=== PATIENT | female | born 1985 | race Caucasian/White ===

== ENCOUNTER 2018-06-05 17:43 | Inpatient (IN) | payer OTHER, MEDICAID ==
[2018-06-05] MEDS ORDERED: METHYLERGONOVINE 0.2 MG INJ IM (19:00)
[2018-06-05] MEDS ORDERED: CARBOPROST 250 MCG INJ IM (19:00)
[2018-06-05] MEDS ORDERED: IBUPROFEN 600 MG TAB PO (19:00)
[2018-06-05] MEDS ORDERED: MISOPROSTOL 200 MCG TAB PR (19:00)
[2018-06-05] MEDS ORDERED: LIDOCAINE 1% (MPF) 30 ML INJ INJ (19:00)
[2018-06-05] MEDS ORDERED: BUTORPHANOL 2 MG INJ IV (19:00)
[2018-06-05] MEDS ORDERED: OXYTOCIN 30 UNITS/LR 500 ML IV ×2 (19:00)
[2018-06-05 19:11] LABS: ADD MAN DIFF? NO
[2018-06-05 19:13] LABS: BASOPHILS % 0.2 % (0.0-2.0); EOSINOPHILS # 0.1 10^3/ul (0.0-0.5); EOSINOPHILS % 0.6 % (0.0-7.0); HEMATOCRIT 39.3 % (37.0-47.0); HEMOGLOBIN 13.4 g/dl (12.0-16.0); LYMPHOCYTES # 2.4 10^3/ul (0.8-2.9); MEAN CORPUSCULAR HEMOGLOBIN 30.7 pg (29.0-33.0); MEAN CORPUSCULAR HGB CONC 34.1 g/dl (32.0-37.0); MEAN CORPUSCULAR VOLUME 90.1 fl (82.0-101.0); MEAN PLATELET VOLUME 11.2 fl (7.4-10.4); MONOCYTE # 0.9 10^3/ul (0.3-0.9); MONOCYTES % 9.4 % (0.0-11.0); NEUTROPHIL # 5.7 10^3/ul (1.6-7.5); NEUTROPHILS % 63.4 % (39.0-77.0); PLATELET COUNT 256 10^3/UL (140-415); RED BLOOD COUNT 4.36 10^6/ul (4.20-5.40); RED CELL DISTRIBUTION WIDTH 12.9 % (11.5-14.5)
[2018-06-05 19:33] LABS: INR 0.83; PROTIME 11.5 Sec (11.9-14.9); PT RATIO 0.9
[2018-06-05 19:34] LABS: PARTIAL THROMBOPLASTIN TIME 27.6 Sec (23.0-35.0)
[2018-06-05 20:14] LABS: HIV 1&2 ANTIBODY NEGATIVE (NEGATIVE)
[2018-06-05] MEDS: LACTATED RINGER'S 1,000 ML IV ×2 (23:06→23:09)
[2018-06-05] MEDS ORDERED: NALOXONE (0.4 MG/ML) INJ IV (23:30)
[2018-06-05] MEDS ORDERED: DIPHENHYDRAMINE 50 MG INJ IV (23:30)
[2018-06-05] MEDS ORDERED: ONDANSETRON 4 MG INJ IV (23:30)
[2018-06-06] MEDS: LACTATED RINGER'S 1,000 ML IV (00:49)
[2018-06-06] MEDS: OXYTOCIN 30 UNITS/LR 500 ML IV ×2 (01:54→11:04)
[2018-06-06] MEDS: FENTAnyl 2MCG/ML-ROPIV 0.2% 100 ML BAG EPI (06:23)
[2018-06-06] MEDS ORDERED: DIPHENHYDRAMINE 25 MG CAP PO (09:00)
[2018-06-06] MEDS ORDERED: NA PHOSPHATE/BIPHOS 133 ML ENEMA PR (09:00)
[2018-06-06] MEDS ORDERED: HYDROCODONE/APAP (5/325) TAB PO ×2 (09:00)
[2018-06-06] MEDS ORDERED: ONDANSETRON 4 MG TAB PO (09:00)
[2018-06-06] MEDS ORDERED: SENNA/DOCUSATE NA (8.6MG/50MG) TAB PO (09:00)
[2018-06-06] MEDS ORDERED: OXYTOCIN 30 UNITS/LR 500 ML IV (09:00)
[2018-06-06] MEDS ORDERED: DIPHENHYDRAMINE 50 MG INJ IV (09:00)
[2018-06-06] MEDS ORDERED: MAGNESIUM HYDROXIDE 30ML CUP PO (09:00)
[2018-06-06] MEDS ORDERED: DIBUCAINE 1% 30 GM OINT TOP (09:00)
[2018-06-06] MEDS ORDERED: CARBOPROST 250 MCG INJ IM (09:00)
[2018-06-06] MEDS ORDERED: MISOPROSTOL 200 MCG TAB PR (09:00)
[2018-06-06] MEDS ORDERED: ONDANSETRON 4 MG INJ IV (09:00)
[2018-06-06] MEDS: WITCH HAZEL/GLYCERIN PAD PR (12:29)
[2018-06-06] MEDS: BENZOCAINE 20% 56 ML SPRAY TOP (12:30)
[2018-06-06] MEDS: IBUPROFEN 600 MG TAB PO ×2 (16:10→17:04)
[2018-06-06] MEDS: LACTATED RINGER'S 1,000 ML IV* ×2 (16:10→16:37)
[2018-06-06] MEDS: SENNA/DOCUSATE NA (8.6MG/50MG) TAB PO ×2 (16:10→21:01)
[2018-06-06 21:37] LABS: RAPID PLASMA REAGIN NONREACTIVE (NR)
[2018-06-07] MEDS: IBUPROFEN 600 MG TAB PO ×5 (00:12→23:38)
[2018-06-07] MEDS: LACTATED RINGER'S 1,000 ML IV* ×3 (00:37→16:37)
[2018-06-07 07:05] LABS: ADD MAN DIFF? NO
[2018-06-07 07:09] LABS: BASOPHILS % 0.2 % (0.0-2.0); EOSINOPHILS # 0.1 10^3/ul (0.0-0.5); EOSINOPHILS % 0.8 % (0.0-7.0); HEMATOCRIT 36.3 % (37.0-47.0); LYMPHOCYTES # 4.3 10^3/ul (0.8-2.9); LYMPHOCYTES % 29.8 % (15.0-51.0); MEAN CORPUSCULAR HEMOGLOBIN 30.9 pg (29.0-33.0); MEAN CORPUSCULAR HGB CONC 33.1 g/dl (32.0-37.0); MEAN CORPUSCULAR VOLUME 93.6 fl (82.0-101.0); MONOCYTE # 1.1 10^3/ul (0.3-0.9); MONOCYTES % 7.5 % (0.0-11.0); NEUTROPHIL # 8.8 10^3/ul (1.6-7.5); NEUTROPHILS % 61.2 % (39.0-77.0); PLATELET COUNT 219 10^3/UL (140-415); RED BLOOD COUNT 3.88 10^6/ul (4.20-5.40); RED CELL DISTRIBUTION WIDTH 13.7 % (11.5-14.5)
[2018-06-07 07:09] LABS: WHITE BLOOD COUNT 14.3 10^3/ul (4.8-10.8)
[2018-06-07] MEDS: SENNA/DOCUSATE NA (8.6MG/50MG) TAB PO ×2 (10:06→20:33)
[2018-06-07] MEDS: LANOLIN HPA 1 PKT TOP (11:31)
[2018-06-08] MEDS: IBUPROFEN 600 MG TAB PO ×2 (05:46→11:41)
[2018-06-08] MEDS: SENNA/DOCUSATE NA (8.6MG/50MG) TAB PO (08:49)
[2018-06-08] MEDS: MEASLES,MUMPS,RUBELLA VACCINE INJ SC* (08:49)
[2018-06-08] MEDS: VARICELLA VACCINE LIVE/PF 1,350 UNIT/0.5 ML ML SC* (08:49)
[2018-06-08] MEDS: DIPHTH/TET/ACEL PERTUSS (ADULT) 0.5 ML VIAL IM* (08:49)
== END 2018-06-08 18:00 | disposition home or self-care (01) | DRG 807 ==
LOC: OBT 17:43 → PP1 06-06 16:06 → L-D 17:43 → OBT 18:10 → L-D 18:10
PROVIDERS: Specialist
PROC: 10E0XZZ Delivery of Products of Conception, External Approach (ICD-10-PCS; principal; 2018-06-06)
DX: O80 Encounter for full-term uncomplicated delivery (principal); Z37.0 Single live birth; Z3A.39 39 weeks gestation of pregnancy
CPT/HCPCS: 62319; 85025; 85610; 85730; 86592; 86703; 86850; 86900; 86901; 99464